=== PATIENT | male | born 1970 | race Caucasian/White ===

== ENCOUNTER → 2017-01-25 | Outpatient (CLI) | payer BC ==
[2017-01-25 13:37] LABS: ALBUMIN 3.9 GM/DL (3.2-5.2); ALBUMIN/GLOBULIN RATIO 1.34 (1.00-1.93); ALKALINE PHOSPHATASE 69 U/L (45-117); ALT/SGPT 41 U/L (12-78); ANION GAP 4 MEQ/L (8-16); AST/SGOT 17 U/L (15-37); BILIRUBIN,TOTAL 0.3 MG/DL (0.2-1.0); BLOOD UREA NITROGEN 19 MG/DL (7-18); CALCIUM LEVEL 8.4 MG/DL (8.5-10.1); CARBON DIOXIDE LEVEL 29 MEQ/L (21-32); CHLORIDE LEVEL 105 MEQ/L (98-107); CHOLESTEROL LEVEL 143 MG/DL (<200); CREATININE FOR GFR 0.74 MG/DL (0.70-1.30); GLOMERULAR FILTRATION RATE > 60.0 (>60); GLUCOSE, FASTING 110 MG/DL (70-105); POTASSIUM SERUM 4.4 MEQ/L (3.5-5.1); SODIUM LEVEL 138 MEQ/L (136-145); TOTAL PROTEIN 6.8 GM/DL (6.4-8.2); TRIGLYCERIDES LEVEL 101 MG/DL (<150)
== END ==
LOC: M WUC 09:44
PROVIDERS: ATTEND Emergency Medicine
DX: E78.2 Mixed hyperlipidemia (principal); R73.01 Impaired fasting glucose

== ENCOUNTER → 2018-02-01 | Outpatient (CLI) | payer BC ==
[2018-02-01 13:13] LABS: ALBUMIN 4.2 GM/DL (3.2-5.2); ALBUMIN/GLOBULIN RATIO 1.56 (1.00-1.93); ALKALINE PHOSPHATASE 56 U/L (45-117); ALT/SGPT 44 U/L (12-78); ANION GAP 6 MEQ/L (8-16); AST/SGOT 17 U/L (7-37); BILIRUBIN,TOTAL 0.4 MG/DL (0.2-1.0); BLOOD UREA NITROGEN 24 MG/DL (7-18); CALCIUM LEVEL 8.9 MG/DL (8.5-10.1); CARBON DIOXIDE LEVEL 29 MEQ/L (21-32); CHLORIDE LEVEL 108 MEQ/L (98-107); CHOLESTEROL LEVEL 138 MG/DL (<200); CHOLESTEROL RISK RATIO 2.816 (<5); GLOMERULAR FILTRATION RATE > 60.0 (>60); GLUCOSE, FASTING 93 MG/DL (70-100); HDL CHOLESTEROL 49 MG/DL (>40); LDL CHOLESTEROL 59.2 MG/DL (<100); NON-HDL-C 89 MG/DL; POTASSIUM SERUM 4.5 MEQ/L (3.5-5.1); SODIUM LEVEL 143 MEQ/L (136-145); TOTAL PROTEIN 6.9 GM/DL (6.4-8.2); TRIGLYCERIDES LEVEL 149 MG/DL (<150)
[2018-02-01 14:43] LABS: ESTIMATED AVERAGE GLUCOSE 111 MG/DL (60-110); HEMOGLOBIN A1c 5.5 %
== END ==
LOC: M WUC 08:54
DX: E78.2 Mixed hyperlipidemia (principal); R73.01 Impaired fasting glucose
CPT/HCPCS: 80053

== ENCOUNTER → 2019-02-04 | Outpatient (CLI) | payer BC ==
[2019-02-04 14:42] LABS: ALT/SGPT 39 U/L (12-78); BILIRUBIN,TOTAL 0.2 MG/DL (0.2-1.0); BLOOD UREA NITROGEN 18 MG/DL (7-18); CARBON DIOXIDE LEVEL 23 MEQ/L (21-32); CHLORIDE LEVEL 112 MEQ/L (98-107); CHOLESTEROL LEVEL 144 MG/DL (<200); CHOLESTEROL RISK RATIO 3.512 (<5); CREATININE FOR GFR 0.76 MG/DL (0.70-1.30); GLOMERULAR FILTRATION RATE > 60.0 (>60); GLUCOSE, FASTING 94 MG/DL (70-100); HDL CHOLESTEROL 41 MG/DL (>40); LDL CHOLESTEROL 71 MG/DL (<100); NON-HDL-C 103 MG/DL; POTASSIUM SERUM 4.1 MEQ/L (3.5-5.1); SODIUM LEVEL 141 MEQ/L (136-145); TOTAL PROTEIN 6.7 GM/DL (6.4-8.2); TRIGLYCERIDES LEVEL 162 MG/DL (<150)
[2019-02-04 14:44] LABS: HEMOGLOBIN A1c 5.8 %
== END ==
LOC: M WUC 08:58
PROVIDERS: ATTEND Physician Assistant
DX: Z00.00 Encounter for general adult medical examination without abnormal findings (principal); R73.01 Impaired fasting glucose

== ENCOUNTER → 2019-03-14 | Outpatient (CLI) | payer BC ==
--- NOTE | 2019-03-14 11:04 | REP ---
AP AND LATERAL RIGHT KNEE, TWO VIEWS: HISTORY: Knee pain. There is no acute fracture or dislocation. The joint spaces are normal in appearance. IMPRESSION: There is no acute fracture or dislocation. Electronically Signed by Kurt Hanna MD 03/14/2019 11:13 A
== END ==
LOC: M WUC 09:46
PROVIDERS: ATTEND Physician Assistant
DX: M25.561 Pain in right knee (principal)

== ENCOUNTER → 2019-07-20 | Outpatient (CLI) | payer BC ==
--- NOTE | 2019-07-30 13:33 | REP ---
MRI right ankle without contrast: History: Achilles tendonitis. No comparison imaging. Technique: The exam was accomplished on two separate dates at my request, July 20, 2019 and July 30, 2019. Axial, coronal, and sagittal imaging planes utilized. T1 and T2-weighted scans were included with without fat saturation. MRI findings: There are changes consistent with a moderate to advanced Achilles tendonitis with swelling and increased signal intensity within the substance of the tendon at its distal calcaneal insertion as well as above this on the lateral side of the tendon. There is no mae discontinuity or retraction. There is edema along the anterior surface of the Achilles tendon. This edema is most pronounced along the lateral aspect of the Achilles tendon as well. There is some mild edema in the pre-Achilles fat generally. The distal Achilles tendon is thickened over approximately 4.7 cm of craniocaudal span. Cortical and medullary bone signal intensity are normal. The peroneus longus and brevis tendons appear intact. Tibialis posterior tendon, flexor digitorum, and flexor hallicis longus tendons have an intact appearance as well. There is no visible ligament disruption. Impression: Findings consistent with moderate distal Achilles tendonitis with two areas of T2 hyperintense fluid within the substance of the tendon as above. There is a ill-defined area of edema in the pre-Achilles fat and there is fluid signal along the anterior margin of the Achilles tendon. Otherwise negative. Electronically Signed by Jhon Villalpando MD 07/30/2019 01:51 P
== END ==
LOC: M PLARAD 09:19
PROVIDERS: ATTEND Orthopaedic Surgery
DX: M76.61 Achilles tendinitis, right leg (principal)

== ENCOUNTER → 2019-11-05 | Outpatient (CLI) | payer BC ==
--- NOTE | 2019-11-06 04:28 | REP ---
Clinical: Pain with decreased range of motion. Technique: Internal rotation, external rotation, and Y view of the right shoulder. Comparison: 10/12/2012. Findings: There is increased widening at the acromioclavicular joint measuring roughly 15 mm which appears increased compared with 02/26/2013. There has also been subsequent significant spur formation along the inferior mid clavicle. The glenohumeral joint appears intact and essentially stable. No obvious acute surrounding soft tissue swelling. Impression: 1. Increased widening to the acromioclavicular joint may represent acute on chronic AC separation. 2. Subsequent significant spur along the inferior mid clavicle protruding towards the joint space Electronically Signed by Jay Moya MD 11/06/2019 04:18 A
== END ==
LOC: M WUC 11:40
PROVIDERS: ATTEND Chiropractor
DX: M25.511 Pain in right shoulder (principal)

== ENCOUNTER → 2019-12-07 | Outpatient (CLI) | payer BC ==
--- NOTE | 2019-12-07 14:12 | REP ---
MRI RIGHT SHOULDER WITHOUT CONTRAST: HISTORY: Impingement syndrome of the right shoulder. Rule out massive rotator cuff tear. Comparison radiographs November 05, 2019. The radiographs demonstrate an old third degree AC separation injury. TECHNIQUE: Axial, oblique coronal and oblique sagittal imaging planes are utilized. T1- and T2-weighted scans are included with and without fat saturation. MRI FINDINGS: Glenohumeral articulation is normally aligned. There is diastases and superior subluxation of the acromioclavicular articulation as seen on the radiographs. There is widening of the coracoclavicular ligament interval. No occult fracture is seen. There is a subacromial subdeltoid bursal effusion in the inferior aspect of the widened AC joint with a sliver of fluid extending along the superior margin of the supraspinatus. There is advanced supraspinatus tendonitis tendinosis change but no full-thickness and retracted cuff tear is appreciated. The partial thickness distal supraspinatus tear is suspected at the distal insertion anteriorly. There is no evidence of infraspinatus or subscapularis disruption. The biceps tendon is in the bony bicipital groove and is surrounded by some fluid. There is subacromial subdeltoid bursal fluid laterally over the humeral head. No anterior or posterior labral tear is seen. The superior labrum does not appear to be disrupted. 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 Subacromial subdeltoid bursal effusion. Advanced tendinosis in the supraspinatus but no complete or retracted supraspinatus tear. Suspect partial tear. Subcortical cyst formation in the humeral head. Electronically Signed by Jhon Villalpando MD 12/07/2019 06:55 P
== END ==
LOC: M PLARAD 09:38
PROVIDERS: ATTEND Orthopaedic Surgery Sports Medicine
DX: M75.41 Impingement syndrome of right shoulder (principal)

== ENCOUNTER → 2020-07-11 | Outpatient (CLI) | payer BC ==
[~2020-07-11] MED LIST: ATOR1TAB21 PO; DULO1CAP6 PO; IBUP200C89 PO; OMEP-221 PO; OMEP40CA97 PO; ZOFR4TAB16 PO
[2020-07-11 13:14] LABS: BASO # 0.2 10^3/uL (0.0-0.2); BASO % 1.8 % (0.0-1.0); EOS # 1.1 10^3/uL (0.0-0.5); EOS % 12.5 % (0.0-3.0); HEMATOCRIT 47.7 % (42.0-52.0); HEMOGLOBIN 15.1 g/dl (13.5-17.5); LYMPH # 2.2 10^3/uL (1.5-5.0); LYMPH % 25.9 % (24.0-44.0); MEAN CORPUSCULAR HGB CONC 31.7 g/dl (32.0-36.5); MEAN CORPUSCULAR VOLUME 91.7 fl (80.0-96.0); MONO % 12.3 % (0.0-5.0); PLATELET COUNT, AUTOMATED 349 10^3/uL (150-450); WHITE BLOOD COUNT 8.4 10^3/uL (4.0-10.0)
[2020-07-11 13:31] LABS: HEMOGLOBIN A1c 5.3 %
[2020-07-11 13:38] LABS: ALBUMIN 4.3 GM/DL (3.2-5.2); ALT/SGPT 35 U/L (12-78); BILIRUBIN,TOTAL 0.6 MG/DL (0.2-1.0); BLOOD UREA NITROGEN 20 MG/DL (7-18); CALCIUM LEVEL 9.3 MG/DL (8.5-10.1); CARBON DIOXIDE LEVEL 30 MEQ/L (21-32); CHLORIDE LEVEL 105 MEQ/L (98-107); CHOLESTEROL LEVEL 174 MG/DL (<200); CREATININE FOR GFR 0.84 MG/DL (0.70-1.30); GLOMERULAR FILTRATION RATE > 60.0 (>60); GLUCOSE, FASTING 101 MG/DL (70-100); HDL CHOLESTEROL 50 MG/DL (>40); LDL CHOLESTEROL 106 MG/DL (<100); NON-HDL-C 124 MG/DL; POTASSIUM SERUM 4.5 MEQ/L (3.5-5.1); SODIUM LEVEL 138 MEQ/L (136-145); TOTAL PROTEIN 7.3 GM/DL (6.4-8.2); TRIGLYCERIDES LEVEL 89 MG/DL (<150)
== END ==
LOC: M WUC 09:27
PROVIDERS: ATTEND Physician Assistant Medical
DX: E78.2 Mixed hyperlipidemia (principal); R73.01 Impaired fasting glucose

== ENCOUNTER → 2020-07-12 | Outpatient (CLI) | payer BC | LOC: M LABSMTC 08:56 | PROVIDERS: ATTEND Anesthesiology | DX: Z01.812 Encounter for preprocedural laboratory examination (principal); Z20.828 Contact with and (suspected) exposure to other viral communicable diseases | CPT/HCPCS: C9803; U0003 ==

== ENCOUNTER 2020-07-17 08:38 | Day surgery (SDC) | payer BC ==
[~2020-07-17] VITALS: Ht 172.7 cm; Wt 98.8 kg
[~2020-07-17 08:38] MED LIST changes: +LIDOCAINE 2% 100MG/5ML SDV (FOR ANES.) As Ordered ONE; +LR 1,000 ML IV ONE; +MIDAZOLAM INJ 2MG/2ML VIAL (J2250 PER 1MG) As Ordered ONE; -OMEP-221 PO; +ONDANSETRON 4MG/2ML VIAL As Ordered ONE; +ROCURONIUM BROMIDE 50 MG/5 ML VIAL As Ordered ONE; -ZOFR4TAB16 PO; +ceFAZolin SOD 2 GM in IV 1 EA IV ONE; +dexameTHASONE 4 MG/ML 1ML VIAL (J1100 PER 1MG) As Ordered ONE; +fentaNYL 100 MCG/2 ML INJECTION (J3010) As Ordered ONE; +propofoL 200 MG/20 ML VIAL As Ordered ONE
[2020-07-17] MEDS ORDERED: LIDOCAINE 1% MDV 20ML VIAL ONE (08:39)
[2020-07-17] MEDS ORDERED: dexameTHASONE 10MG/1ML VIAL PRES.FREE (J1100 PER 1MG) ONE (08:39)
[2020-07-17] MEDS ORDERED: ROPIvacaine 0.5% 30ML INJECTION (J2795 PER 1MG) ONE (08:39)
[2020-07-17] MEDS ORDERED: SCOPOLAMINE 1MG TRANSDERMAL PATCH As Ordered ONE (10:02)
[2020-07-17] MEDS ORDERED: fentaNYL 100 MCG/2 ML INJECTION (J3010) As Ordered ONE ×2 (10:09→12:58)
[2020-07-17] MEDS ORDERED: MIDAZOLAM INJ 2MG/2ML VIAL (J2250 PER 1MG) As Ordered ONE (10:09)
[2020-07-17] MEDS: fentaNYL 100 MCG/2 ML INJECTION (J3010) IV PRN ×2 (10:17→10:23)
[2020-07-17] MEDS: MIDAZOLAM INJ 2MG/2ML VIAL (J2250 PER 1MG) IV PRN ×2 (10:17→10:23)
[2020-07-17] MEDS ORDERED: SCOPOLAMINE 1MG TRANSDERMAL PATCH TOP ONE (10:30)
[2020-07-17] MEDS ORDERED: ePHEDrine SULFATE 25 MG/5 ML(5MG/ML) SYRINGE As Ordered ONE (11:34)
[2020-07-17] MEDS ORDERED: SUGAMMADEX SODIUM 500 MG/5 ML VIAL (BRIDION) As Ordered ONE (11:34)
[2020-07-17] MEDS ORDERED: ACETAMINOPHEN 1000MG 100ML IV BTL (OFIRMEV) (J0131 PER 10MG) As Ordered ONE (11:34)
[2020-07-17] MEDS ORDERED: ROCURONIUM BROMIDE 50 MG/5 ML VIAL As Ordered ONE (12:11)
[2020-07-17] MEDS ORDERED: hydrALAZINE 20MG/ML 1ML VIAL (J0360 PER 20MG) As Ordered ONE (13:08)
[2020-07-17] MEDS ORDERED: LABETALOL 100MG/20ML VIAL As Ordered ONE (13:19)
[2020-07-17] MEDS ORDERED: propofoL 200 MG/20 ML VIAL As Ordered ONE (13:20)
--- NOTE | 2020-07-17 14:00 | REP ---
INDICATION: RIGHT INSERTIONAL ACHILLES TENDINOSIS intraoperative imaging. COMPARISON: None. TECHNIQUE: Three views. FINDINGS: 11.5 minutes of fluoroscopy time is reported. A sequence of 3 last image hold fluoroscopically obtained intraprocedural spot radiographs of the right calcaneus document operative procedure. IMPRESSION: Procedural imaging. <Electronically signed by Benji Villalpando > 07/17/20 0085
[2020-07-17] MEDS ORDERED: ONDANSETRON 4MG/2ML VIAL IV PRN (14:15)
[2020-07-17] MEDS ORDERED: LR 1,000 ML IV SCH ×2 (14:15)
[2020-07-17] MEDS ORDERED: fentaNYL 100 MCG/2 ML INJECTION (J3010) IV PRN (14:15)
[2020-07-17 15:50] VITALS: BP 142/83
--- NOTE | 2020-07-17 16:19 | RO ---
DATE OF OPERATION: 07/17/2020 PREOPERATIVE DIAGNOSIS: Right insertional Achilles tendinosis. POSTOPERATIVE DIAGNOSIS: Right insertional Achilles tendinosis. PROCEDURE: 1. Right Achilles debridement and repair with Arthrex SpeedBridge. 2. Right calcaneal exostectomy. 3. Use of the mini C-arm. SURGEON: Betsey Kaur M.D. GROCERY STOCK CLERK: Marisela Quiros ESTIMATED BLOOD LOSS: 25 mL. ANESTHESIA: General endotracheal with popliteal nerve block. COMPLICATIONS: None. CONDITION: Stable to recovery. INDICATIONS: Joe Peace is a 49-year-old male who has had longstanding pain due to right insertional Achilles tendinosis. He has failed conservative measures. Risks and benefits of surgery were discussed with the patient in detail and include, but are not limited to, infection, damage to nerves and blood vessels, continued pain and stiffness, need for additional procedures. Informed consent was obtained in the office. PROCEDURE DESCRIPTION: Patient was met in the preoperative holding area, where his right lower extremity was marked as the correct operative site. He underwent a popliteal nerve block. The was placed in the prone position on the operating room table. He received antibiotics within 60 minutes prior to incision. The right lower extremity was prepped and draped in the normal sterile fashion. An official time-out was held, where the correct patient, operative side, and operative procedure were verified. The leg was exsanguinated and the tourniquet was inflated to 250 mm of mercury. An incision was made midline distally over the Achilles tendon. Careful dissection of the peritenon was performed. Peritenon itself was quite adherent to the Achilles tendon. It was carefully teased off the Achilles with a [place]. I then made a midline incision through the Achilles tendon itself. 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 The tendon was also quite thickened and tendinotic. I first removed the enthesophyte using a rongeur and osteotome. Next, the tendon was debrided using a series of 15 blade to remove as much tendinotic tissue as possible. A very thorough debridement was performed of the Achilles tendon. Next, a 38 saw was used to perform a calcaneal exostectomy. I then used a power rasp to nicely contour the Achilles. Lateral x- ray using the mini C-arm showed that there was satisfactory removal of the enthesophyte and Olive's deformity. Next, the Arthrex SpeedBridge was used to reattach the tendon to the calcaneal tuberosity. I first drilled the proximal holes. I then tapped and inserted the two suture anchors. The FiberWire was passed through the tendon, as well was the extra #2 FiberWire stitch. Following that, two holes were drilled distally for the speed bridge insertion. They were also tapped. Tension was set using the extra FiberWires and the proximal sutures, which were tied down. Following this, the Arthrex SpeedBridge was secured in standard fashion. There was a good repair and tension of the SpeedBridge. It was further reinforced with one 2-0 FiberWire through the distal lateral suture anchor. Copious irrigation was then performed. The tendon itself was closed with a running 0 Vicryl. I then closed what of the peritenon I was able to, which was a fair amount distally and some proximally. The skin was closed using 3-0 Vicryl and 3-0 nylon. A sterile dressing was applied. A well- padded splint was also placed. The patient was extubated and transferred to the recovery room in stable condition. PLAN: Patient will be nonweightbearing on the right lower extremity for 6 weeks. He will be seen in a week for a wound check. MICHELE
== END 2020-07-17 16:00 | disposition home or self-care (01) ==
LOC: M SDC 08:38
PROVIDERS: ATTEND Orthopaedic Surgery
DX: M76.61 Achilles tendinitis, right leg (principal); E78.5 Hyperlipidemia, unspecified; K21.9 Gastro-esophageal reflux disease without esophagitis; F41.9 Anxiety disorder, unspecified; Z79.899 Other long term (current) drug therapy
CPT/HCPCS: 28118; 64445; 76000; 88300; 88304; 97116; C1713; J0131; J0360; J0690; J1100; J2250; J2405; J2795; J3010

== ENCOUNTER 2020-07-25 16:10 | Emergency (ER) | payer BC ==
[~2020-07-25] VITALS: Ht 172.7 cm; Wt 104.5 kg
[~2020-07-25 16:10] MED LIST changes: -LIDOCAINE 2% 100MG/5ML SDV (FOR ANES.) As Ordered ONE; -LR 1,000 ML IV ONE; -MIDAZOLAM INJ 2MG/2ML VIAL (J2250 PER 1MG) As Ordered ONE; -ONDANSETRON 4MG/2ML VIAL As Ordered ONE; -ROCURONIUM BROMIDE 50 MG/5 ML VIAL As Ordered ONE; -ceFAZolin SOD 2 GM in IV 1 EA IV ONE; -dexameTHASONE 4 MG/ML 1ML VIAL (J1100 PER 1MG) As Ordered ONE; -fentaNYL 100 MCG/2 ML INJECTION (J3010) As Ordered ONE; -propofoL 200 MG/20 ML VIAL As Ordered ONE
[2020-07-25] MEDS ORDERED: OMEP-221 PO (16:33)
--- NOTE | 2020-07-25 17:40 | REPVR ---
PROCEDURE INFORMATION: Exam: US Duplex Right Lower Extremity Veins, Limited Exam date and time: 07/25/2020 5:18 PM Age: 49 years old Clinical indication: Pain; Leg, lower; Right; Prior surgery; Surgery date: <1 month; Surgery type: Patient had surgery on RT achilles tendon on 07/17; Additional info: Rle pain R/O dvt TECHNIQUE: Imaging protocol: Real-time Duplex ultrasound of the Right Lower Extremity with 2-D puentes scale, color Doppler flow and spectral waveform analysis with image documentation. Limited exam was focused on the right lower extremity veins. COMPARISON: No relevant prior studies available. FINDINGS: Right deep veins: Unremarkable. The common femoral, femoral, proximal profunda femoral and popliteal veins are patent without thrombus. Normal Doppler waveforms. Normal compressibility and/or augmentation response. Right superficial veins: Unremarkable. Saphenofemoral junction is patent without thrombus. Soft tissues: Unremarkable. IMPRESSION: No evidence of deep vein thrombosis. Electronically signed by: Dustin Connors On 07/25/2020 17:40:28 PM
[2020-07-25] MEDS ORDERED: ONDANSETRON 4MG/2ML VIAL IV ONE (18:15)
[2020-07-25 18:16] LABS: BASO # 0.1 10^3/uL (0.0-0.2); BASO % 1.2 % (0.0-1.0); EOS # 0.9 10^3/uL (0.0-0.5); EOS % 8.9 % (0.0-3.0); HEMATOCRIT 48.9 % (42.0-52.0); HEMOGLOBIN 15.7 g/dl (13.5-17.5); LYMPH # 2.3 10^3/uL (1.5-5.0); LYMPH % 23.1 % (24.0-44.0); MEAN CORPUSCULAR HEMOGLOBIN 28.8 pg (27.0-33.0); MEAN CORPUSCULAR HGB CONC 32.1 g/dl (32.0-36.5); MEAN CORPUSCULAR VOLUME 89.6 fl (80.0-96.0); MONO # 1.2 10^3/uL (0.0-0.8); MONO % 12.4 % (0.0-5.0); NEUTROPHILS # 5.3 10^3/uL (1.5-8.5); NEUTROPHILS % 53.9 % (36.0-66.0); PLATELET COUNT, AUTOMATED 400 10^3/uL (150-450); RED BLOOD COUNT 5.46 10^6/uL (4.30-6.10); WHITE BLOOD COUNT 9.8 10^3/uL (4.0-10.0)
[2020-07-25 18:27] LABS: INR 0.94; PARTIAL THROMBOPLASTIN TIME 30.2 SECONDS (24.2-38.5); PROTHROMBIN TIME 12.8 SECONDS (12.5-14.3)
[2020-07-25 18:44] LABS: BLOOD UREA NITROGEN 16 MG/DL (7-18); GLUCOSE, FASTING 88 MG/DL (70-100)
[2020-07-25 18:45] LABS: ALBUMIN 4.1 GM/DL (3.2-5.2); ALT/SGPT 57 U/L (12-78); BILIRUBIN,DIRECT 0.1 MG/DL (0.0-0.2); BILIRUBIN,TOTAL 0.4 MG/DL (0.2-1.0); CALCIUM LEVEL 9.3 MG/DL (8.5-10.1); CARBON DIOXIDE LEVEL 28 MEQ/L (21-32); CHLORIDE LEVEL 106 MEQ/L (98-107); CK-MB VALUE MASS < 1.0 NG/ML (<3.6); CPK CREATINE PHOSPHOKINASE 59 U/L (39-308); CREATININE FOR GFR 0.74 MG/DL (0.70-1.30); FREE T4 0.81 NG/DL (0.76-1.46); GLOMERULAR FILTRATION RATE > 60.0 (>60); LIPASE 171 U/L (73-393); MB/CK RELATIVE INDEX 1.69 (< OR =4); POTASSIUM SERUM 4.8 MEQ/L (3.5-5.1); SODIUM LEVEL 139 MEQ/L (136-145); THYROID STIMULATING HORMONE 0.929 uIU/ML (0.358-3.740); TOTAL PROTEIN 7.4 GM/DL (6.4-8.2); TROPONIN I < 0.02 NG/ML (< 0.10)
[2020-07-25] MEDS ORDERED: ISOVUE-370 76% 100ML VIAL As Ordered ONE (18:47)
--- NOTE | 2020-07-25 20:15 | REPVR ---
PROCEDURE INFORMATION: Exam: CT Angiography Chest With Contrast Exam date and time: 07/25/2020 6:54 PM Age: 49 years old Clinical indication: Shortness of breath; Patient HX: PT had surgery on Achilles a month ago; Additional info: R/O pe TECHNIQUE: Imaging protocol: Computed tomographic angiography of the chest with intravenous contrast. 3D rendering (Not supervised by radiologist): MIP and/or 3D reconstructed images were created by the technologist. Radiation optimization: All CT scans at this facility use at least one of these dose optimization techniques: automated exposure control; mA and/or kV adjustment per patient size (includes targeted exams where dose is matched to clinical indication); or iterative reconstruction. Contrast material: ISOVUE 370; Contrast volume: 100 ml; Contrast route: INTRAVENOUS (IV); COMPARISON: No relevant prior studies available. FINDINGS: Pulmonary arteries: No pulmonary embolism. Aorta: The thoracic aorta is intact and patent. There is no thoracic aortic aneurysm, pseudoaneurysm, penetrating atherosclerotic ulcer, intramural hematoma, or dissection. Great vessels off aortic arch: The brachiocephalic artery, imaged proximal portions of the common carotid arteries, imaged proximal portions of the vertebral arteries, and subclavian arteries are intact. No stenosis or occlusion of these vessels is noted. 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 Tracheobronchial tree: Intact and patent. Lungs: There is no lung consolidation, pulmonary infarct, or mass. No emphysematous changes or interstitial lung disease is noted. There is a 2 mm calcified granuloma in the right lower lobe (image 45 of the coronal MIP series 405). Pleural space: Normal. No pneumothorax or pleural effusion. Heart: No cardiomegaly or pericardial effusion. Mediastinal space: No mediastinal mass, fluid collection, or pneumomediastinum. Lymph nodes: No enlarged lymph nodes. Diaphragm: Intact. Liver: There is a 6 mm cyst in the posterior superior segment 7 of the right hepatic lobe, for which follow-up is not necessary. Gallbladder and bile ducts: No calcified gallstones are noted. No gallbladder wall thickening, pericholecystic fluid, or pericholecystic inflammatory changes are identified. No dilation of the bile ducts is noted. No calcified stones are seen in the common bile duct. Spleen: The spleen is heterogeneous in appearance, which is likely secondary to the arterial timing of the contrast bolus. No splenomegaly. Adrenals: Normal. No adrenal mass is noted. Limited kidneys: There is a 4 mm cyst in the midpole of the left kidney, for which follow-up is not necessary. The kidneys were not fully imaged. Bones/joints: There is no fracture or dislocation. No suspicious osteolytic or osteoblastic lesion. There are endplate spurs in the thoracic spine. Soft tissues: Unremarkable. IMPRESSION: No acute findings in the chest. No pulmonary embolism. Electronically signed by: Justus Mariano On 07/25/2020 20:15:28 PM
--- NOTE | 2020-07-25 20:38 | ECGEPIP ---
[facility] - ED Test Date: 2020-07-25 Pat Name: CHEN CHONG Department: Room: - Gender: Male [employer]er: TREY : 1970 Requested By: CÉSAR Stein Order Number: [id number] Reading MD: Viki Washburn Measurements Intervals Bruni Rate: 85 P: 35 NE: 171 QRS: -10 QRSD: 100 T: 8 QT: 343 QTc: 409 Interpretive Statements SINUS RHYTHM NO PRIOR Electronically Signed on 07-25-2020 20:38:12 EDT by Viki Washburn
[2020-07-25] MEDS ORDERED: ZOFR4TAB16 PO (20:47)
[2020-07-25 21:00] VITALS: BP 129/77
== END 2020-07-25 21:20 | disposition home or self-care (01) ==
LOC: M ED 16:10
DX: R55 Syncope and collapse (principal); R11.0 Nausea; R06.02 Shortness of breath; Z98.890 Other specified postprocedural states; K21.9 Gastro-esophageal reflux disease without esophagitis; E78.9 Disorder of lipoprotein metabolism, unspecified; F41.9 Anxiety disorder, unspecified; Z91.048 Other nonmedicinal substance allergy status; Z79.899 Other long term (current) drug therapy
CPT/HCPCS: 36415; 71275; 80048; 80076; 82550; 82553; 83690; 84439; 84443; 84484; 85025; 85610; 85730; 93005; 93041; 93971; 94760; 96361; 96374; 99285; J2405; Q9967

== ENCOUNTER → 2021-01-23 | Outpatient (CLI) | payer BC ==
[~2021-01-23] MED LIST changes: +OMEP-221 PO; +ZOFR4TAB16 PO
--- NOTE | 2021-01-23 11:56 | REP ---
INDICATION: PAIN COMPARISON: None. TECHNIQUE: AP, lateral, bilateral oblique and sunrise views. FINDINGS: Mild arthritic degenerative changes include subtle increased sclerosis along the medial tibial plateau and posterior patella with very early marginal spurring along the medial compartment and superior/lateral patella. There is no evidence for acute fracture or dislocation. No effusion. IMPRESSION: Mild arthritic degenerative changes. <Electronically signed by Jay Moya > 01/23/21 [id number]
[2021-01-23 16:29] LABS: BLOOD UREA NITROGEN 20 MG/DL (7-18); CALCIUM LEVEL 8.9 MG/DL (8.5-10.1); CARBON DIOXIDE LEVEL 26 MEQ/L (21-32); CHLORIDE LEVEL 108 MEQ/L (98-107); CHOLESTEROL LEVEL 132 MG/DL (<200); CREATININE FOR GFR 0.69 MG/DL (0.70-1.30); GLOMERULAR FILTRATION RATE > 60.0 (>60); GLUCOSE, FASTING 91 MG/DL (70-100); HDL CHOLESTEROL 55 MG/DL (>40); LDL CHOLESTEROL 62 MG/DL (<100); NON-HDL-C 77 MG/DL; POTASSIUM SERUM 4.4 MEQ/L (3.5-5.1); RHEUMATOID FACTOR QUANT < 10.0 IU/ML (<15.0); SODIUM LEVEL 140 MEQ/L (136-145); TRIGLYCERIDES LEVEL 74 MG/DL (<150)
[2021-01-23 17:10] LABS: HEMOGLOBIN A1c 5.5 %
== END ==
LOC: M WUC 11:33
PROVIDERS: ATTEND Physician Assistant Medical
DX: E78.2 Mixed hyperlipidemia (principal); R73.01 Impaired fasting glucose; M17.12 Unilateral primary osteoarthritis, left knee

== ENCOUNTER → 2021-07-07 | Outpatient (CLI) | payer OTHER, BC ==
[~2021-07-07] MED LIST changes: +OMEP40CA4 PO; -OMEP40CA97 PO
[2021-07-07 14:16] LABS: C REACTIVE PROTEIN QUANTITATIV < 0.30 MG/DL (0.00-0.30); RHEUMATOID FACTOR QUANT < 10.0 IU/ML (<15.0)
[2021-07-08 19:08] LABS: ANTINUCLEAR ANTIBODIES DIRECT Negative (Negative); Lyme Disease IgG Ab 18 kDa Ban Absent (.); Lyme Disease IgG Ab 23 kDa Ban Absent (.); Lyme Disease IgG Ab 28 kDa Ban Absent (.); Lyme Disease IgG Ab 30 kDa Ban Absent (.); Lyme Disease IgG Ab 39 kDa Ban Absent (.); Lyme Disease IgG Ab 41 kDa Ban Absent (.); Lyme Disease IgG Ab 45 kDa Ban Absent (.); Lyme Disease IgG Ab 58 kDa Ban Absent (.); Lyme Disease IgG Ab 66 kDa Ban Absent (.); Lyme Disease IgG Ab 93 kDa Ban Absent (.); Lyme Disease IgG West Blot Int Negative (.); Lyme Disease IgG/IgM Antibodie <0.91 ISR (0.00-0.90); Lyme Disease IgM Ab 23 kDa Ban Absent (.); Lyme Disease IgM Ab 39 kDa Ban Absent (.); Lyme Disease IgM Ab 41 kDa Ban Absent (.); Lyme Disease IgM Ab Quantitati 1.82 index (0.00-0.79); Lyme Disease IgM West Blot Int Negative (.)
== END ==
LOC: M WUC 10:04
PROVIDERS: ATTEND Physician Assistant
DX: M25.561 Pain in right knee (principal)

== ENCOUNTER → 2021-08-17 | Outpatient (CLI) | payer BC ==
--- NOTE | 2021-08-17 10:33 | REP ---
INDICATION: RT LEG PAIN SWELLING ? DVT COMPARISON: 07/25/2020 TECHNIQUE: Hooks scale and color Doppler evaluation using linear high frequency transducer. FINDINGS: Ultrasound examination of the right lower extremity deep venous structures from the common femoral vein through the calf/ankle to include the peroneal, and tibial veins demonstrates normal compressibility flow and wave patterns in response to respiration and augmentation. There is no evidence for deep venous thrombosis. Contralateral CFV is patent and normal. IMPRESSION: No evidence for deep venous thrombosis. <Electronically signed by Jay Moya > 08/17/21 1021
== END ==
LOC: M RAD 09:57
PROVIDERS: ATTEND Orthopaedic Surgery
DX: M17.11 Unilateral primary osteoarthritis, right knee (principal)

== ENCOUNTER → 2021-08-18 | Outpatient (CLI) | payer BC ==
--- NOTE | 2021-08-18 18:08 | REP ---
INDICATION: DERANG OF MEDICAL MENISCUS DUE TO OLD TEAR. COMPARISON: None. TECHNIQUE: Pulse duplex and color Doppler ultrasound evaluation of the deep venous system of the right lower extremity was performed. FINDINGS: There is no evidence of deep venous thrombosis of the right lower extremity. There is a complex fluid collection in the right popliteal fossa consistent with a Kate's cyst. IMPRESSION: 1. No evidence of deep venous thrombosis of the right lower extremity. 2. Kate's cyst in the right popliteal fossa. <Electronically signed by Fabien Rodriguez > 08/18/21 [id number]
== END ==
LOC: M RAD 16:53
PROVIDERS: ATTEND Orthopaedic Surgery
DX: R00.2 Palpitations (principal)

== ENCOUNTER → 2022-05-06 | Outpatient (REF) | payer OTHER, BC ==
[~2022-05-06] MED LIST changes: -OMEP-221 PO; +OMEP40CA5 PO
== END ==
LOC: M LAB REF 17:14
PROVIDERS: ATTEND Nurse Practitioner Family
DX: R35.1 Nocturia (principal)

== ENCOUNTER → 2022-05-07 | Outpatient (CLI) | payer OTHER ==
[2022-05-07 17:09] LABS: BASO # 0.1 10^3/uL (0.0-0.2); BASO % 1.9 % (0.0-1.0); EOS # 0.3 10^3/uL (0.0-0.5); EOS % 5.3 % (0.0-3.0); HEMATOCRIT 48.1 % (42.0-52.0); HEMOGLOBIN 15.7 g/dl (13.5-17.5); LYMPH % 31.5 % (24.0-44.0); MEAN CORPUSCULAR HGB CONC 32.6 g/dl (32.0-36.5); MEAN CORPUSCULAR VOLUME 88.9 fl (80.0-96.0); MONO # 0.8 10^3/uL (0.0-0.8); MONO % 12.4 % (2.0-8.0); NEUTROPHILS % 48.7 % (36.0-66.0); PLATELET COUNT, AUTOMATED 315 10^3/uL (150-450); RED BLOOD COUNT 5.41 10^6/uL (4.30-6.10); WHITE BLOOD COUNT 6.2 10^3/uL (4.0-10.0)
[2022-05-07 18:14] LABS: ALBUMIN 4.6 GM/DL (3.2-5.2); ALT/SGPT 35 U/L (12-78); BILIRUBIN,TOTAL 0.8 MG/DL (0.2-1.0); BLOOD UREA NITROGEN 20 MG/DL (7-18); CALCIUM LEVEL 9.3 MG/DL (8.5-10.1); CARBON DIOXIDE LEVEL 24 MEQ/L (21-32); CHLORIDE LEVEL 107 MEQ/L (98-107); CHOLESTEROL LEVEL 159 MG/DL (<200); GLOMERULAR FILTRATION RATE > 60.0 (>56); GLUCOSE, FASTING 94 MG/DL (70-100); HDL CHOLESTEROL 50 MG/DL (>40); LDL CHOLESTEROL 95 MG/DL (<100); NON-HDL-C 109 MG/DL; POTASSIUM SERUM 4.5 MEQ/L (3.5-5.1); RHEUMATOID FACTOR QUANT < 10.0 IU/ML (<15.0); SODIUM LEVEL 139 MEQ/L (136-145); TOTAL PROTEIN 7.5 GM/DL (6.4-8.2); TRIGLYCERIDES LEVEL 72 MG/DL (<150)
== END ==
LOC: M WUC 13:07
PROVIDERS: ATTEND Nurse Practitioner Family
DX: E78.2 Mixed hyperlipidemia (principal); R35.1 Nocturia

== ENCOUNTER → 2022-08-29 | Outpatient (CLI) | payer OTHER ==
[~2022-08-29] MED LIST changes: +ASPI81CH33 PO; +CETI-24 PO; +FLUTISP
== END ==
LOC: M LABSMTC 10:05
PROVIDERS: ATTEND Anesthesiology
DX: Z01.812 Encounter for preprocedural laboratory examination (principal); Z11.52 Encounter for screening for COVID-19

== ENCOUNTER 2022-09-01 08:40 | Day surgery (SDC) | payer OTHER ==
[~2022-09-01] VITALS: Ht 172.7 cm; Wt 103.3 kg
[~2022-09-01 08:40] MED LIST changes: +NS 1,000 ML IV ONE
[2022-09-01] MEDS ORDERED: LIDOCAINE 2% 100MG/5ML SDV (FOR ANES.) As Ordered ONE (09:34)
[2022-09-01] MEDS ORDERED: propofoL 200 MG/20 ML VIAL As Ordered ONE ×2 (09:34→09:51)
[2022-09-01] MEDS ORDERED: MIDAZOLAM INJ 2MG/2ML VIAL (J2250 PER 1MG) As Ordered ONE (09:34)
[2022-09-01 10:29] VITALS: BP 139/87
== END 2022-09-01 10:39 | disposition home or self-care (01) ==
LOC: M OPP 08:40
PROVIDERS: ATTEND Surgery
DX: Z12.11 Encounter for screening for malignant neoplasm of colon (principal); E78.00 Pure hypercholesterolemia, unspecified; R12 Heartburn; Z79.02 Long term (current) use of antithrombotics/antiplatelets; Z79.51 Long term (current) use of inhaled steroids; Z79.82 Long term (current) use of aspirin; Z79.899 Other long term (current) drug therapy; Z91.048 Other nonmedicinal substance allergy status
CPT/HCPCS: 45378; J2250

== ENCOUNTER → 2023-06-07 | Outpatient (CLI) | payer OTHER ==
[~2023-06-07] MED LIST changes: +FLUT50SP17; -FLUTISP; -NS 1,000 ML IV ONE
[2023-06-07 12:04] LABS: BASO # 0.1 10^3/uL (0.0-0.2); BASO % 1.7 % (0.0-1.0); EOS # 0.9 10^3/uL (0.0-0.5); HEMATOCRIT 44.3 % (42.0-52.0); HEMOGLOBIN 14.1 g/dl (13.5-17.5); LYMPH # 2.1 10^3/uL (1.5-5.0); LYMPH % 25.4 % (24.0-44.0); MEAN CORPUSCULAR HEMOGLOBIN 29.2 pg (27.0-33.0); MEAN CORPUSCULAR HGB CONC 31.8 g/dl (32.0-36.5); MEAN CORPUSCULAR VOLUME 91.7 fl (80.0-96.0); MONO # 0.9 10^3/uL (0.0-0.8); MONO % 10.7 % (2.0-8.0); NEUTROPHILS # 4.1 10^3/uL (1.5-8.5); PLATELET COUNT, AUTOMATED 340 10^3/uL (150-450); RED BLOOD COUNT 4.83 10^6/uL (4.30-6.10); WHITE BLOOD COUNT 8.1 10^3/uL (4.0-10.0)
[2023-06-07 12:32] LABS: ALKALINE PHOSPHATASE 57 U/L (46-116); ALT/SGPT 41 U/L (7.0-40); AST/SGOT 21 U/L (<34); BILIRUBIN,TOTAL 0.4 MG/DL (0.3-1.2); BLOOD UREA NITROGEN 15 MG/DL (9-23); CALCIUM LEVEL 8.9 MG/DL (8.5-10.1); CARBON DIOXIDE LEVEL 24 MMOL/L (20-31); CHLORIDE LEVEL 108 MMOL/L (98-107); CHOLESTEROL LEVEL 191 MG/DL (<200); CHOLESTEROL RISK RATIO 3.27 (<5); GLOMERULAR FILTRATION RATE > 60.0 (>56); GLUCOSE, FASTING 101 MG/DL (60-100); HDL CHOLESTEROL 58.4 MG/DL (>40); LDL CHOLESTEROL 107.6 MG/DL (<100); NON-HDL-C 132.6 MG/DL; POTASSIUM SERUM 4.4 MMOL/L (3.5-5.1); SODIUM LEVEL 141 MMOL/L (136-145); TOTAL PROTEIN 6.6 G/DL (5.7-8.2); TRIGLYCERIDES LEVEL 125 MG/DL (<150)
== END ==
LOC: M WUC 09:36
PROVIDERS: ATTEND Registered Nurse
DX: E78.2 Mixed hyperlipidemia (principal)

== ENCOUNTER → 2023-09-22 | Outpatient (CLI) | payer OTHER ==
[~2023-09-22] MED LIST changes: -FLUT50SP17; +FLUTISP
== END ==
LOC: M WUC 14:13
PROVIDERS: ATTEND Registered Nurse
DX: N50.812 Left testicular pain (principal)

== ENCOUNTER → 2023-09-23 | Outpatient (CLI) | payer OTHER | LOC: M RAD 11:52 | PROVIDERS: ATTEND Registered Nurse | DX: N50.812 Left testicular pain (principal) ==

== ENCOUNTER → 2025-09-21 | Outpatient (CLI) | payer BC ==
[2025-09-21 09:42] LABS: BASO # 0.1 10^3/uL (0.0-0.2); BASO % 1.8 % (0.0-1.0); EOS # 0.5 10^3/uL (0.0-0.5); EOS % 8.7 % (0.0-3.0); LYMPH # 1.6 10^3/uL (1.5-5.0); LYMPH % 27.5 % (24.0-44.0); MONO # 0.7 10^3/uL (0.0-0.8); MONO % 12.2 % (2.0-8.0); NEUTROPHILS # 3.0 10^3/uL (1.5-8.5); NEUTROPHILS % 49.5 % (36.0-66.0); PLATELET COUNT, AUTOMATED 291 10^3/uL (150-450)
[2025-09-21 10:09] LABS: ESTIMATED AVERAGE GLUCOSE 108.0 MG/DL (60-110)
[2025-09-21 10:16] LABS: FREE T4 1.17 NG/DL (0.89-1.76)
[2025-09-21 10:19] LABS: ALT/SGPT 36 U/L (7.0-40); AST/SGOT 22 U/L (<34); CALCIUM LEVEL 8.7 MG/DL (8.5-10.1); CARBON DIOXIDE LEVEL 27 MMOL/L (20-31); CHLORIDE LEVEL 105 MMOL/L (98-107); CHOLESTEROL LEVEL 202 MG/DL (<200); CHOLESTEROL RISK RATIO 4.08 (<5); CREATININE FOR GFR 0.78 MG/DL (0.70-1.30); GLOMERULAR FILTRATION RATE > 90.0 (>56); LDL CHOLESTEROL 129.6 MG/DL (<100); MAGNESIUM LEVEL 2.1 MG/DL (1.8-2.4); NON-HDL-C 152.6 MG/DL; POTASSIUM SERUM 4.6 MMOL/L (3.5-5.1); SODIUM LEVEL 141 MMOL/L (136-145); TRIGLYCERIDES LEVEL 115 MG/DL (<150)
[2025-09-24 19:53] LABS: LYME TOTAL ANTIBODY CIA <= 0.90 Index (<=0.90)
== END ==
LOC: M LAB 09:14
PROVIDERS: ATTEND Family Medicine
DX: R00.2 Palpitations (principal); E78.2 Mixed hyperlipidemia; E66.9 Obesity, unspecified